=== PATIENT | female | born 1985 | race Caucasian/White ===

== ENCOUNTER 2025-01-21 22:31 | Emergency (ER) | payer BC, OTHER ==
[~2025-01-21] VITALS: Ht 167.6 cm; Wt 79.5 kg
[2025-01-21 23:19] LABS: Urine Protein, UAD Negative (Negative)
--- NOTE | 2025-01-21 23:57 | ED.PDOC ---
History of Present Illness HPI Comments 39 y/o F presents with spouse for c/c of headache. Patient reports on being 13x weeks , currently, and developing a constant headache after starting her Macrobid antibiotic regiment 3x days following recent evaluation for 5x day history of bilateral flank pain. She reports taking Tylenol, Sudafed, and Migraine medications to no relief or improvement. Denial of any vaginal bleeding, nausea, vomiting, dizziness, or further associated symptoms. Patient has established outpatient [facility] care, with upcoming appointment on 01/23/25. Chief Complaint: Flank Pain Time Seen by MD: 23:10 Reviewed Notes: Nurses Notes, Medications, Allergies Allergies: Coded Allergies: Sulfa Antibiotics (Verified Allergy, Severe, 01/22/25) ANAPHYLACTIC Information Source: Patient, Spouse Mode of Arrival: Ambulatory Severity: Moderate Timing: Days Duration: Since onset Prehospital treatment: None Past Medical History PAST MEDICAL HISTORY: Denies Surgical History: Denies all surgeries BILL DISTRIBUTOR History: No Pertinent BILL DISTRIBUTOR History All Other Systems: Reviewed and Negative (Comprehensive systems review obtained and negative except for what is stated in the HPI.) Physical Exam General Appearance: Moderate Distress HEENT: Normal ENT Inspection, Pharynx Normal, TMs Normal Neck: Full Range of Motion, Non-Tender, Normal, Normal Inspection Respiratory: Chest Non-Tender, Lungs Clear, No Accessory Muscle Use, No Respiratory Distress, Normal Breath Sounds Cardiovascular: No Edema, No JVD, No Murmur, No Gallop, Normal Peripheral Pulses, Regular Rate/Rhythm Breast Exam: Deferred Gastrointestinal: No Organomegaly, Non Tender, No Pulsatile Mass, Normal Bowel Sounds, Soft Genitalia: Deferred Pelvic: Deferred Rectal: Deferred Extremities: No calf tenderness, Normal capillary refill, Normal inspection, Normal range of motion, Non-tender, No pedal edema Musculoskeletal : Apperance: Normal 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 Was a procedure done?: No Differential Dx Considerations may include: adverse medication reaction, tension headache, cluster migraines, viral syndrome, UTI, among others X-Ray, Labs, Meds, VS Vital Signs Date Time Temp Pulse Resp B/P (MAP) Pulse Ox O2 Delivery O2 Flow Rate FiO2 01/22/25 00:23 102 16 129/57 01/22/25 00:10 98.7 102 16 129/57 (81) 97 98.7 01/21/25 22:34 97.7 112 16 140/82 96 97.7 Lab Test 01/21/25 22:50 Range/Units Urine Color Light-yellow Yellow Urine Clarity Clear Clear Urine pH 6.0 5.0-9.0 Urine Specific [place] 1.008 1.001-1.035 Urine Protein Negative Negative Urine Ketones Negative Negative Urine Blood Negative Negative /uL Urine Nitrite Negative Negative Urine Bilirubin Negative Negative Urine Urobilinogen Normal Negative mg/dL Urine Leukocyte Esterase Negative Negative /uL Urine RBC <1 0 - 4 /hpf Urine Microscopic WBC 2 0-5 /HPF Urine Squamous Epithelial Cells Few <5 /hpf Urine Bacteria None seen None Seen /hpf Urine Glucose Normal Normal mg/dL Current Medications Medications (Trade) Dose Ordered Sig/Will Route Start Time Stop Time Status Last Admin Morphine Sulfate 4 mg ONCE ONCE IV 01/21/25 23:15 01/21/25 23:16 DC 01/22/25 00:23 Sodium Chloride 1,000 ml @ 1,000 mls/hr Q1H ONCE IV 01/21/25 23:15 01/22/25 00:14 DC 01/22/25 00:22 Patient alert. Came in because migraine. Vitals stable. Answering all questions. No leg swelling. No shortness a breath. No abdominal pain. No cramping. No bleeding. Establish intravenous access. Was given fluids. Explained to the patient that she will possibly need oral morphine as per her OBGYN. Was told to follow up with her primary care physician. Was told to come back if there is any problem. Was given pain medication. Time of 1ST Reevaluation: 23:40 Reevaluation 1ST: Unchanged Patient Education/Counseling: Diagnosis, Treatment, Need For Follow Up Family Education/Counseling: Diagnosis, Treatment, Need For Follow Up SEPSIS Sepsis Screen Date sepsis recognized/suspect: Jan 21, 2025 Time Sepsis recognized/suspect: 2241 Recent Procedure: No On Antibiotic Therapy: Yes Respiratory Rate >20: No Heart Rate >90: No Temp<36 C (96.8 F) or >38.3 C: No SBP <90 or MAP <65 mmHG: No New Acute Mental Status Change: No Is the patient on CPAP, BIPAP,: No Vital Signs Date Time Temp Pulse Resp B/P (MAP) Pulse Ox O2 Delivery O2 Flow Rate FiO2 01/22/25 00:23 102 16 129/57 01/22/25 00:10 98.7 102 16 129/57 (81) 97 98.7 01/21/25 22:34 97.7 112 16 140/82 96 97.7 Medications Medications Dose Ordered Sig/Will Route Start Time Stop Time Status Last Admin Dose Admin Morphine Sulfate 4 mg ONCE ONCE IV 01/21/25 23:15 01/21/25 23:16 DC 01/22/25 00:23 Sodium Chloride 1,000 ml @ 1,000 mls/hr Q1H ONCE IV 01/21/25 23:15 01/22/25 00:14 DC 01/22/25 00:22 Departure 1 Departure Time of Disposition: 01:07 Impression: Primary Impression: H/O migraine during Disposition: 01 HOME / SELF CARE / HOMELESS Condition: Good Discharged With: Self Critical Care Note Critical Care Time?: No Stability Stability form required: No Heart Score Heart Score: Heart Score Response (Comments) Value History N/A 0 EKG N/A 0 Age N/A 0 Risk Factors N/A 0 Troponin N/A 0 Total 0 I personally scribed for STEVEN FERNANDEZ MD ([email or web address]) on 01/21/25 at 23:57. Electronically submitted by Costa Hassan ([email or web address]). STEVEN FERNANDEZ MD Jan 21, 2025 23:57
[2025-01-22] MEDS: SODIUM CHLORIDE 0.9% 1,000 ML IV ONE (00:22)
[2025-01-22] MEDS: MORPHINE SULFATE 4 MG/ML SYR/VIAL IV ONE (00:23)
[2025-01-22] MEDS: PROMETHAZINE HCL 6.25 MG/5 ML ORAL SYRUP PO ONE (00:31)
[2025-01-22 01:33] VITALS: BP 151/79; PULSE 102; RESP 18; TEMP 98.5; O2SAT 97
== END 2025-01-22 01:50 | disposition home or self-care (01) ==
LOC: ER 22:31
DX: O29.41 Spinal and epidural anesthesia induced headache during pregnancy, first trimester (principal); Z3A.13 13 weeks gestation of pregnancy; Z79.899 Other long term (current) drug therapy; Z88.2 Allergy status to sulfonamides
CPT/HCPCS: 81001; 96361; 96374; 99283; J2270; J7030